=== PATIENT | female | born 1985 | race Caucasian/White ===

== ENCOUNTER 2017-08-06 10:53 | Emergency (ER) | payer SELFPAY ==
[2017-08-06 11:13] VITALS: TEMP 98.9; O2SAT 97
--- NOTE | 2017-08-06 11:31 | RAD ---
EXAM DESCRIPTION: Chest,2 Views CLINICAL HISTORY: 31 years Female, cough, chest tightness COMPARISON: 11/16/2015 IMPRESSION: Heart size and pulmonary vascularity are within normal limits. There is no airspace consolidation, pleural effusion, or pneumothorax. No acute osseous abnormality. Electronically signed by: Renan Duque MD 08/06/2017 11:29 AM CDT
[2017-08-06] MEDS ORDERED: SODIUM CHLORIDE 0.9% 1000ML 1,000 ML IVS ONE (11:42)
--- NOTE | 2017-08-06 13:20 | ED.PDOC ---
History of Present Illness - General Chief Complaint: Chest Pain/ID Stated Complaint: Chest tightness/burning Time Seen by Provider: 08/06/17 11:40 Source: patient Exam Limitations: no limitations - History of Present Illness Initial Comments: Enedina Jenkins 31 y/o female stated that she woke up this morning with left sided chest tightness lasting for about 20 minutes radiating to shoulder left,no diaphoresis,but was SOB,no N/V.She was then brought by ama mom to ER Timing/Duration: 1-3 hours Location: central Activities at Onset: rest Prior Chest Pain/Cardiac Workup: no prior chest pain Improving Factors: nothing Worsening Factors: nothing Nitro Today/Relief: no nitro taken today Aspirin Treatment Today: no aspirin today Associated Symptoms: shortness of breath Allergies/Adverse Reactions: Allergies NO KNOWN ALLERGY Allergy (Verified 08/06/17 11:06) Home Medications: Ambulatory Orders Tramadol HCl 50 mg PO TID PRN #10 tab 08/06/17 Review of Systems - Review of Systems Constitutional: States: no symptoms reported EENTM: States: no symptoms reported Respiratory: States: no symptoms reported Cardiology: States: see HPI Gastrointestinal/Abdominal: States: no symptoms reported Genitourinary: States: no symptoms reported Past Medical History (General) - Patient Medical History Hx Seizures: No Hx Stroke: No Hx Dementia: No Hx Asthma: No Hx of COPD: No Hx Cardiac Disorders: No Hx Congestive Heart Failure: No Hx Pacemaker: No Hx Hypertension: No Hx Thyroid Disease: No Hx Diabetes: No Hx Gastroesophageal Reflux: No Hx Renal Disease: No Hx Cancer: No Hx of HIV: No Hx Hepatitis C: No Hx MRSA: No Hx Other PMH: Yes - chronic abdominal pain,migraine like headache MRSA Source:: Wound Surgical History: tonsillectomy, other - D&C,EGD - Vaccination History Hx Influenza Vaccination: No Hx Pneumococcal Vaccination: No - Social History Hx Tobacco Use: Yes Hx Alcohol Use: No Hx Substance Use: No Hx Substance Use Treatment: No Hx Depression: No Hx Physical Abuse: No Hx Emotional Abuse: No Hx Suspected Abuse: No - Female History Patient : No Family Medical History - Family History Mother Family History: No Known Hx Family;Other: Seizure disorder Father Hx Family Asthma: Yes Hx Family;Other: COPD Physical Exam - Physical Exam General Appearance: Alert, No apparent distress Eyes, Ears, Nose, Throat Exam: PERRL/EOMI, normal ENT inspection, pharynx normal Neck: non-tender, supple Respiratory: lungs clear, normal breath sounds, no respiratory distress, other - tenderness left side chest Cardiovascular/Chest: normal peripheral pulses, regular rate, rhythm Peripheral Pulses: radial,right: 1+, radial,left: 1+ Gastrointestinal/Abdominal: normal bowel sounds, non tender, soft, no organomegaly Extremity: non-tender, no pedal edema, no calf tenderness Neurologic: no motor/sensory deficits, alert, oriented x 3 Skin Exam: normal color, warm/dry Lymphatic: no adenopathy Progress - Progress Progress: 08/06/17 13:26 Vital Signs - 8 hr 08/06/17 11:08 Temperature 98.9 F Pulse Rate [ 85 Right Radial] Respiratory 24 Rate Blood Pressure 122/80 [Right Arm] O2 Sat by Pulse 97 Oximetry - Results/Orders Results/Orders: Laboratory Tests 08/06/17 08/06/17 08/06/17 11:50 11:50 11:50 WBC 9.2 RBC 4.78 Hgb 13.6 Hct 40.0 MCV 83.8 MCH 28.4 MCHC 33.9 RDW 13.4 Plt Count 326 D-Dimer, Quantitative 260 H* Sodium 138 Potassium 3.8 Chloride 108 Carbon Dioxide 23 Anion Gap 10.8 L BUN 8 Creatinine 0.75 BUN/Creatinine Ratio 10.7 Random Glucose 92 Serum Osmolality 273.6 L Calcium 8.9 Total Bilirubin < 0.2 L AST 25 ALT 49 Alkaline Phosphatase 48 Troponin I Serum Total Protein 7.7 Albumin 3.8 Globulin 3.9 H Albumin/Globulin Ratio 1.0 L 08/06/17 11:50 WBC RBC Hgb Hct MCV MCH MCHC RDW Plt Count D-Dimer, Quantitative Sodium Potassium Chloride Carbon Dioxide Anion Gap BUN Creatinine BUN/Creatinine Ratio Random Glucose Serum Osmolality Calcium Total Bilirubin AST ALT Alkaline Phosphatase Troponin I < 0.02 Serum Total Protein Albumin Globulin Albumin/Globulin Ratio - EKG/XRAY/CT Comments: HR 84 CT Ordered: Yes - no Pulmonary embolus ;Thyroid nodule - Additional EKG/XRAY/Consults Comments: HR-74 Departure - Departure Clinical Impression: Chest tightness, Thyroid nodule Time of Disposition: 15:24 Disposition: Discharge to Home or Self Care Condition: Good Departure Forms: ED Discharge - Pt. Copy, Patient Portal Self Enrollment Instructions: DI for Atypical Chest Pain Diet: low fat, low cholesterol Referrals: Med Carrizales MD [Primary Care Provider] - 1-2 Weeks Prescriptions: Tramadol HCl 50 mg PO TID PRN #10 tab PRN Reason: Pain Home Medications: Ambulatory Orders Tramadol HCl 50 mg PO TID PRN #10 tab 08/06/17 Additional Instructions: Continue with Ranitidine as directed ;Avoid taking NSAIDS daily;FOLLOW UP WITH PRIMARY MD 08/08/2017 Call for your appointment;Return to emergency room as needed
--- NOTE | 2017-08-06 13:42 | CT ---
EXAM DESCRIPTION: CTA Chest CLINICAL HISTORY: 31 years, Female, elevated d dimer chest pain COMPARISON: Plain radiograph earlier today FINDINGS: Enhanced images through the chest using pulmonary embolus protocol. MIP reformatted images obtained. This examination was performed according to our departmental dose optimization program, which includes automatic exposure control, adjustment of the MA and/or kV according to the patient size and/or use of iterative reconstruction technique. No suspicious filling defects within the pulmonary arteries well opacified to the subsegmental level. No suspicious lung lesions. No mediastinal lymphadenopathy. Low-density nodule posterior to the lower right lobe of thyroid about 1.4 x 1.2 cm in axial cross-section. This shows some central vascularity. This may be a parathyroid nodule one exophytic thyroid nodule. Additional nonemergent characterization by ultrasound suggested. IMPRESSION: 1. No findings of pulmonary embolus. 2. No suspicious lung lesions or lymphadenopathy 3. Nodule, slightly more than 1 cm, involving the right thyroid or parathyroid gland. Ultrasound evaluation suggested. Electronically signed by: Vijay Restrepo MD 08/06/2017 1:41 PM CDT
[2017-08-06 15:59] VITALS: BP 112/71
== END 2017-08-06 15:58 | disposition home or self-care (01) ==
LOC: ER 10:53
DX: R07.89 Other chest pain (principal); E04.1 Nontoxic single thyroid nodule; Z87.891 Personal history of nicotine dependence
CPT/HCPCS: 36415; 71020; 71275; 80053; 84484; 85379; 93005; J7030

== ENCOUNTER 2020-07-22 07:19 | Emergency (ER) | payer SELFPAY ==
[2020-07-22] MEDS ORDERED: ONDANSETRON INJ 4 MG/2 ML VIAL IV ONE (07:50)
[2020-07-22] MEDS ORDERED: MORPHINE SULFATE INJ 10 MG/ML VIAL IV ONE (07:50)
[2020-07-22] MEDS ORDERED: SODIUM CHLORIDE 0.9% 1000ML 1,000 ML IVS ONE (07:50)
--- NOTE | 2020-07-22 07:53 | ED.PDOC ---
History of Present Illness - General Chief Complaint: Abdominal Pain Stated Complaint: pelvic pain Time Seen by Provider: 07/22/20 07:49 Additional Information: Patient is a 34-year-old female who presents to the ED via her with chief complaint of pelvic pain. Patient woke this morning feeling well and went to have a shower. While she was getting ready she developed pelvic pain. She typically has painful menses and she felt as if her period was about to come on as it is that time of the month. Patient also felt as if she needed to have a bowel movement and went to have a bowel movement but that did not relieve her symptoms. Pain has persisted, is crampy, 10 out of 10 in intensity. She has had similar pain in the past with her menses but she indicates that she also typically gets low back pain with her menstrual cramping and she does not have any low back pain today. Patient denies vomiting, fever, chills, chest pain, shortness of breath; she does have nausea. She denies any previous past surgical history. She indicates she does not have chronic abdominal issues. Review of Systems - Review of Systems Constitutional: States: no symptoms reported. Denies: chills, fever EENTM: States: no symptoms reported Respiratory: States: no symptoms reported. Denies: cough, short of breath Cardiology: States: no symptoms reported. Denies: chest pain, palpitations Gastrointestinal/Abdominal: States: abdominal pain, nausea. Denies: constipation, diarrhea, vomiting Genitourinary: States: no symptoms reported. Denies: dysuria Musculoskeletal: States: no symptoms reported Skin: States: no symptoms reported. Denies: rash Neurological: States: no symptoms reported All other Systems: Reviewed and Negative Past Medical History (General) - Patient Medical History Hx Seizures: No Hx Stroke: No Hx Dementia: No Hx Asthma: No Hx of COPD: No Hx Cardiac Disorders: No Hx Congestive Heart Failure: No Hx Pacemaker: No Hx Hypertension: No Hx Thyroid Disease: No Hx Diabetes: No Hx Gastroesophageal Reflux: No Hx Renal Disease: No Hx Cancer: No Hx of HIV: No Hx Hepatitis C: No Hx MRSA: No MRSA Source:: Wound Surgical History: tonsillectomy - Vaccination History Hx Influenza Vaccination: No Hx Pneumococcal Vaccination: No - Social History Hx Tobacco Use: Yes Hx Alcohol Use: No Hx Substance Use: No Hx Substance Use Treatment: No Hx Depression: No Hx Physical Abuse: No Hx Emotional Abuse: No Hx Suspected Abuse: No - Female History Patient is a Female of Child Bearing Age (10 -59 yrs old): Yes Patient : No Family Medical History - Family History Mother Family History: No Known Hx Family;Other: Seizure disorder Father Hx Family Asthma: Yes Hx Family;Other: COPD Physical Exam - Physical Exam General Appearance: Alert, Obvious distress, Other - Patient is curled in the position, uncomfortable. Tearful. Eyes, Ears, Nose, Throat Exam: normal ENT inspection Neck: supple, normal inspection Respiratory: chest non-tender, lungs clear, normal breath sounds, no respiratory distress, no accessory muscle use Cardiovascular/Chest: normal peripheral pulses, regular rate, rhythm, no edema, no gallop, no JVD, no murmur Peripheral Pulses: No deficit Gastrointestinal/Abdominal: normal bowel sounds, soft, other - Moderate suprapubic tenderness to palpation, no guarding. 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 07/22/20 10:24 Patient reexamined and is feeling much better at this time. Her labs are unremarkable but her CT shows mild colitis. I specifically discussed with patient need to follow-up with GI for anticipated colonoscopy and biopsy to evaluate for inflammatory bowel disease. I will give Cipro and Flagyl in the ED and discharged with the same. Vital signs stable, patient is NAD and looks clinically well and I believe is safe for discharge with outpatient follow-up. Follow-up instructions, discharge instructions and return to ED precautions discussed with patient. Patient voices understanding and willingness to comply with instructions. All laboratory and radiographic results have been discussed with the patient, and all questions answered. Patient is happy with plan. Departure - Departure Clinical Impression: Acute colitis Time of Disposition: 10:26 Disposition: Discharge to Home or Self Care Condition: Good Departure Forms: ED Discharge - Pt. Copy, Patient Portal Self Enrollment Instructions: DI for Abdominal Pain-Adult Referrals: Med Carrizales MD [Primary Care Provider] - 1-2 Weeks Prescriptions: Ciprofloxacin HCl [Cipro] 500 mg PO BID #20 tab metroNIDAZOLE [Flagyl] 500 mg PO Q8H #30 tab Acetaminophen W/ Codeine [Tylenol W/ CODEINE #3] 1 ea PO Q6H PRN #20 PRN Reason: Pain Home Medications: Ambulatory Orders Acetaminophen W/ Codeine [Tylenol W/ CODEINE #3] 1 ea PO Q6H PRN #20 07/22/20 Ciprofloxacin HCl [Cipro] 500 mg PO BID #20 tab 07/22/20 Loratadine 10Mg/Pseudoep 240Mg [Claritin-D 24 Hour] 1 ea PO DAILY 07/22/20 metroNIDAZOLE [Flagyl] 500 mg PO Q8H #30 tab 07/22/20
[2020-07-22 09:39] VITALS: O2SAT 99
--- NOTE | 2020-07-22 09:46 | CT ---
EXAM: Abdomen/Pelvis w/Contrast CLINICAL INDICATION: Abdominal pain. COMPARISON: 02/08/2011 TECHNIQUE: The CT scan was done using contiguous axial 5 mm postcontrast sections through the abdomen and pelvis including IV contrast. This exam was performed according to our departmental dose-optimization program, which includes automated exposure control, adjustment of the mA and/or kV according to patient size and/or use of iterative reconstruction technique. FINDINGS: The visualized portions of the lung bases are clear. The liver, gallbladder, kidneys, adrenal glands, spleen, and pancreas have a normal CT appearance. The aorta is normal in caliber. There is a mildly thickened appearance of the colon, especially the transverse, descending, and sigmoid colon consistent with colitis. There are no dilated loops of small bowel, free air, free fluid, or abscess. IMPRESSION: 1. Findings consistent with mild colitis. 2. Otherwise, no acute intra-abdominal process. Electronically signed by: Aidan Best MD 07/22/2020 9:44 AM CDT
[2020-07-22] MEDS ORDERED: metroNIDAZOLE 500 MG TAB PO ONE (10:17)
[2020-07-22] MEDS ORDERED: CIPROFLOXACIN 500 MG TAB PO ONE (10:17)
[2020-07-22] MEDS ORDERED: HYDROcodone 10MG/APAP 325MG 1 EA TAB PO ONE (10:23)
[2020-07-22 10:46] VITALS: BP 119/74; TEMP 97
== END 2020-07-22 10:46 | disposition home or self-care (01) ==
LOC: ER 07:19
DX: K52.9 Noninfective gastroenteritis and colitis, unspecified (principal); R10.9 Unspecified abdominal pain; R11.0 Nausea; F17.200 Nicotine dependence, unspecified, uncomplicated
CPT/HCPCS: 36415; 74177; 80053; 81001; 83690; 84703; 85025; J2270; J2405; J7030